=== PATIENT | male | born 1955 | race Caucasian/White ===

== ENCOUNTER 2022-02-21 13:04 | Outpatient (CLI) | payer OTHER, MEDICARE ==
--- NOTE | 2022-02-21 16:45 | XRAY Report ---
PROCEDURE: Lumbar Spine 2 View INDICATIONS: LUMBAR SPINE PAIN TECHNIQUE: 3 views of the lumbar spine were acquired. COMPARISON: None. FINDINGS: Bones: 5 [id number] vertebrae are present. There is mild, approximately 3 mm of L2-L3 and L3-L 4 retrolisthesis. There is mild, approximately 4 mm of L5-S1 retrolisthesis. No vertebral body compre ssion fractures. No suspicious bony lesions. Mild degenerative disc changes noted throughout the lum bar spine. Mild L1-L2, L2-L3 and L3-L4 facet hypertrophy. Moderate L4-L5 and L5-S1 facet hypertrophy. Soft tissues: Overlying bowel gas pattern is normal. No suspicious soft tissue calcifications. IMPRESSION: 1. Multilevel degenerative disc disease. 2. Multilevel facet arthropathy. 3. No fracture. No acute osseous lesion. If there is continued clinical concern for pathology, then M RI should be considered for further evaluation. Reviewed by: Rashida Zapata MD, PhD on 02/21/2022 4:44 PM PDT Approved by: Rashida Zapata MD, PhD on 02/21/2022 4:44 PM PDT Station ID: [id number]
== END 2022-02-21 23:59 | disposition home or self-care (01) ==
LOC: DI.N 13:04
PROVIDERS: ATTEND Physician Assistant
DX: M43.16 Spondylolisthesis, lumbar region (principal); M43.17 Spondylolisthesis, lumbosacral region; M51.36 Other intervertebral disc degeneration, lumbar region; M47.816 Spondylosis without myelopathy or radiculopathy, lumbar region; M47.817 Spondylosis without myelopathy or radiculopathy, lumbosacral region

== ENCOUNTER 2023-01-10 08:22 | Outpatient (CLI) | payer OTHER, MEDICARE ==
--- NOTE | 2023-01-10 10:21 | XRAY Report ---
PROCEDURE: Lumbar Spine 2 View INDICATIONS: STRAIN OF MUSCLE,FASCIA AND TENDON OF LOWER BACK TECHNIQUE: 2 views of the lumbar spine were acquired. COMPARISON: Lumbar spine radiographs 02/21/2022 FINDINGS: Bones: 5 [id number] vertebrae are present. 3 mm grade 1 retrolisthesis of L1 on L2. Trace retro listhesis of L2 on L3 and L3 on L4. Approximately 4 mm grade 1 retrolisthesis of L5 on S1. No verteb ral body compression fractures. No suspicious bony lesions. There is multilevel disc space narrowin g and degenerative endplate changes. Facet hypertrophy is seen throughout the lumbar spine, most prom inent at the L4-5 and L5-S1 levels. Soft tissues: Overlying bowel gas pattern is normal. No suspicious soft tissue calcifications. Mil d aortic atherosclerotic calcifications. IMPRESSION: Multilevel spondylosis and degenerative spondylolisthesis, which does not appear signifi cantly changed compared to the radiographs from 02/21/2022. Reviewed by: Mateo Lundberg MD on 01/10/2023 10:20 AM PDT Approved by: Mateo Lundberg MD on 01/10/2023 10:20 AM PDT Station ID: [id number]
== END 2023-01-10 08:23 | disposition home or self-care (01) ==
LOC: DI 08:22
PROVIDERS: ATTEND Family Medicine
DX: M51.36 Other intervertebral disc degeneration, lumbar region (principal); M51.37 Other intervertebral disc degeneration, lumbosacral region; M47.816 Spondylosis without myelopathy or radiculopathy, lumbar region; M47.817 Spondylosis without myelopathy or radiculopathy, lumbosacral region; M43.16 Spondylolisthesis, lumbar region; M43.17 Spondylolisthesis, lumbosacral region

== ENCOUNTER 2023-06-02 07:30 | Outpatient (CLI) | payer MEDICARE, OTHER ==
[2023-06-02 12:36] LABS: BASOPHILS # (AUTO) 0.1 10^3/uL (0.0-0.1); BASOPHILS % (AUTO) 0.8 %; EOSINOPHILS # (AUTO) 0.1 10^3/uL (0.0-0.7); EOSINOPHILS % (AUTO) 0.8 %; HGB - HEMOGLOBIN 15.3 g/dL (14.0-18.0); LYMPHOCYTES # (AUTO) 2.5 10^3/uL (1.5-3.5); LYMPHOCYTES % (AUTO) 33.5 %; MEAN CORPUSCULAR HEMOGLOBIN 28.3 pg (27.0-31.0); MEAN CORPUSCULAR HGB CONC 32.6 g/dL (32.0-36.0); MEAN CORPUSCULAR VOLUME 86.9 fL (80.0-94.0); MEAN PLATELET VOLUME 11.3 fL (7.4-11.4); MONOCYTES # (AUTO) 0.6 10^3/uL (0.0-1.0); MONOCYTES % (AUTO) 7.7 %; NEUTROPHILS # (AUTO) 4.2 10^3/uL (1.5-6.6); NEUTROPHILS % (AUTO) 56.9 %; PLT - PLATELET COUNT 230 10^3/uL (130-450); RED BLOOD COUNT 5.41 10^6/uL (4.70-6.10); RED CELL DISTRIBUTION WIDTH 14.1 % (12.0-15.0); WHITE BLOOD COUNT 7.4 x10^3/uL (4.8-10.8)
[2023-06-02 12:40] LABS: ESTIMATED AVERAGE GLUCOSE 143 mg/dL (70-100); HEMOGLOBIN A1c% 6.6 % (4.27-6.07)
[2023-06-02 12:55] LABS: THYROID STIMULATING HORMONE 1.92 uIU/mL (0.34-5.60)
[2023-06-02 13:02] LABS: ALBUMIN 4.3 g/dL (3.2-5.5); ALBUMIN/GLOBULIN RATIO 1.3 (1.0-2.2); BILIRUBIN,TOTAL 0.4 mg/dL (0.2-1.0); CALCIUM 9.7 mg/dL (8.5-10.3); CREATININE 0.9 mg/dL (0.6-1.3); POTASSIUM 3.9 mmol/L (3.5-4.5); TOTAL PROTEIN 7.7 g/dL (6.4-8.9)
== END 2023-06-02 07:45 | disposition home or self-care (01) ==
LOC: LAB.N 07:30
PROVIDERS: ATTEND Family Medicine
DX: G62.9 Polyneuropathy, unspecified (principal); I73.9 Peripheral vascular disease, unspecified; M79.661 Pain in right lower leg
CPT/HCPCS: 36415; 80053; 82607; 83036; 84443; 85025; 85379

== ENCOUNTER 2023-06-13 21:48 | Outpatient (CLI) | payer MEDICARE, OTHER ==
--- NOTE | 2023-06-14 23:12 | Ultrasound Report ---
PROCEDURE: Duplex Lwr Ext Arterial Bilat INDICATIONS: INTERMITTENT CLAUDICATION TECHNIQUE: Color and pulse Doppler interrogation was performed of both lower extremity arterial systems, with im age documentation. COMPARISON: None FINDINGS: Right lower extremity: Common femoral artery: 228 cm/sec, with biphasic flow. Deep femoral artery: 139 cm/sec, with biphasic flow. Proximal superficial femoral artery: 134 cm/sec, with biphasic flow. Mid superficial femoral artery: 109 cm/sec, with biphasic flow. Distal superficial femoral artery: 99 cm/sec, with biphasic flow. Popliteal artery: 38 cm/sec, with monophasic flow. Posterior tibial artery: 50 cm/sec, with monophasic flow. Anterior tibial artery/dorsalis pedis: 36 cm/sec, with monophasic flow. Baron-scale imaging description: Prominent atherosclerotic calcification can be seen. Left lower extremity: Common femoral artery: 201 cm/sec, with biphasic flow. Deep femoral artery: 159 cm/sec, with biphasic flow. Proximal superficial femoral artery: 116 cm/sec, with biphasic flow. Mid superficial femoral artery: 142 cm/sec, with biphasic flow. Distal superficial femoral artery: 173 cm/sec, with biphasic flow. Popliteal artery: 65 cm/sec, with biphasic flow. Posterior tibial artery: 32 cm/sec, with monophasic flow. Anterior tibial artery/dorsalis pedis: 60 cm/sec, with biphasic flow. Baron-scale imaging description: Severe atherosclerotic calcification can be seen. IMPRESSION: With femoral arteries, which is consistent with inflow stenoses. There is a borderline stenosis seen within the distal left superficial femoral artery. No additional focal stenosis can be seen throughout either lower extremity by velocity criteria. Atherosclerotic plaque is seen throughout. Monophasic flow seen distally. Please consider follow-up runoff CT angiogram or runoff MR angiogram for further evaluation. Reviewed by: Puneet Arguello MD on 06/14/2023 10:10 PM [facility] Approved by: Puneet Arguello MD on 06/14/2023 10:10 PM [facility] Station ID: [id number]
== END 2023-06-13 21:49 | disposition home or self-care (01) ==
LOC: DI 21:48
PROVIDERS: ATTEND Family Medicine
DX: I70.203 Unspecified atherosclerosis of native arteries of extremities, bilateral legs (principal)
CPT/HCPCS: 93925

== ENCOUNTER 2023-07-01 09:36 | Outpatient (CLI) | payer MEDICARE, OTHER ==
[2023-07-01] MEDS ORDERED: IOVERSOL 320 100 ML VIAL IVP ONE (10:10)
--- NOTE | 2023-07-01 16:54 | CT Report ---
PROCEDURE: ANGIO LOWER EXT W/WO - B/L INDICATIONS: RIGHT CALF PAIN, PVD, CLAUDICATION TECHNIQUE: After administration of contrast 3 mm axial sections acquired of the PROCEDURE: ANGIO LOWER EXT W/WO - B/L INDICATIONS: RIGHT CALF PAIN, PVD, CLAUDICATION CONTRAST: 125ml Optiray 320 TECHNIQUE: After the administration of intravenous contrast, a CT scan of the abdomen, pelvis and lower extremit ies (to the feet) was performed. Images were recorded and evaluated at appropriate window settings. R eformats: coronal and sagittal. For radiation dose reduction, the following was used: automated expos ure control, adjustment of mA and/or kV according to patient size. COMPARISON: None. FINDINGS: Image quality: Excellent. Lung bases are clear. Calcification of the coronary vasculature. Heart size is normal. Arterial phase images of the liver, gallbladder, biliary tree, pancreas, spleen, adrenals, kidneys, a nd urinary bladder are within normal limits. Visualized bowel loops are within normal limits. No destiny opathy within the abdomen, nor pelvis. There is a fat-containing umbilical hernia measuring 40 mm yancy meter. No free fluid. There is fusiform aneurysmal dilatation of the infrarenal abdominal aorta with mild mural thrombus, w ith maximum short axis diameter of roughly 38 mm. No significant aortic stenosis is present. The celiac artery demonstrate a moderate origin stenosis. Superior mesenteric artery is patent. Infer ior mesenteric artery demonstrates a high-grade origin stenosis. There are 2 left renal arteries whic h demonstrate moderate origin stenoses. Mild origin stenosis of the single right renal artery is pres ent. Visualized osseous structures are grossly unremarkable. 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 Common iliac artery demonstrates moderate diffuse plaque in mild diffuse stenosis. Internal iliac artery demonstrates a h igh-grade origin stenosis. External iliac artery demonstrates moderate stenosis within its midportion and is otherwise patent. Common femoral artery demonstrates moderate diffuse plaque in mild diffuse stenosis. Profunda femoral artery demonstrates a moderate origin stenosis. Superficial femoral artery demonstrates multifocal high-grade stenoses. Above knee popliteal artery is occluded proximally, and reconstitutes within its mid and distal aspects. Below knee popliteal artery demonstrates moderate d iffuse plaque causing mild diffuse stenosis. Anterior tibial artery demonstrates a high-grade calcifi c stenosis proximally and is otherwise patent. Tibial peroneal trunk demonstrates high-grade stenosis distally. Posterior tibial artery demonstrates mild multifocal stenoses. Peroneal artery is patent t o its normal terminus. Left: Moderate diffuse plaque and mild diffuse stenosis of the common iliac artery. Internal iliac artery i s occluded. External iliac artery dilatation moderate diffuse plaque in mild diffuse stenosis. Common femoral artery demonstrates moderate diffuse plaque in mild diffuse stenosis. High-grade calcific st enosis of the profunda femoral artery origin. Superficial femoral artery demonstrates moderate stenos is proximally and high-grade stenosis distally. Above and below knee popliteal artery is mildly diffu sely stenotic. Anterior tibial artery demonstrates multifocal high-grade stenoses and occludes distal ly. Tibioperoneal trunk is mildly diffusely stenotic. Peroneal artery is patent with normal terminus. Posterior tibial artery is patent to its normal terminus. IMPRESSION: 1. Abdominal aortic aneurysm. 2. Mesenteric and renal artery stenoses. 3. Bilateral inflow stenoses as described above. 4. Bilateral outflow stenoses and right-sided outflow occlusion. 5. Two-vessel bilateral lower extremity runoff. 6. Fat-containing umbilical hernia. 7. Coronary artery disease. Reviewed by: Xiomy Campbell MD on 07/01/2023 4:52 PM PDT Approved by: Xiomy Campbell MD on 07/01/2023 4:52 PM PDT Station ID: [id number]
== END 2023-07-01 09:37 | disposition home or self-care (01) ==
LOC: DI 09:36
PROVIDERS: ATTEND Family Medicine
DX: I71.40 Abdominal aortic aneurysm, without rupture, unspecified (principal); I70.1 Atherosclerosis of renal artery; K55.1 Chronic vascular disorders of intestine; K42.9 Umbilical hernia without obstruction or gangrene; I25.10 Atherosclerotic heart disease of native coronary artery without angina pectoris; I70.203 Unspecified atherosclerosis of native arteries of extremities, bilateral legs
CPT/HCPCS: 73706; Q9967

== ENCOUNTER 2024-02-19 12:56 | Outpatient (CLI) | payer MEDICARE, OTHER ==
[2024-02-19 13:08] LABS: BASOPHILS # (AUTO) 0.1 10^3/uL (0.0-0.1); BASOPHILS % (AUTO) 0.4 %; EOSINOPHILS % (AUTO) 0.3 %; HCT - HEMATOCRIT 44.9 % (42.0-52.0); HGB - HEMOGLOBIN 13.9 g/dL (14.0-18.0); LYMPHOCYTES # (AUTO) 2.2 10^3/uL (1.5-3.5); LYMPHOCYTES % (AUTO) 15.5 %; MEAN CORPUSCULAR HEMOGLOBIN 26.3 pg (27.0-31.0); MEAN PLATELET VOLUME 10.2 fL (7.4-11.4); MONOCYTES % (AUTO) 6.9 %; NEUTROPHILS # (AUTO) 10.7 10^3/uL (1.5-6.6); NEUTROPHILS % (AUTO) 76.5 %; PLT - PLATELET COUNT 221 10^3/uL (130-450); RED BLOOD COUNT 5.28 10^6/uL (4.70-6.10); RED CELL DISTRIBUTION WIDTH 15.6 % (12.0-15.0)
[2024-02-19 13:21] LABS: ALBUMIN 4.2 g/dL (3.2-5.5); ALBUMIN/GLOBULIN RATIO 1.2 (1.0-2.2); BILIRUBIN,TOTAL 0.9 mg/dL (0.2-1.0); CALCIUM 9.8 mg/dL (8.5-10.3); CREATININE 0.9 mg/dL (0.6-1.3); POTASSIUM 4.1 mmol/L (3.5-4.5); TOTAL PROTEIN 7.8 g/dL (6.4-8.9)
[2024-02-19 13:37] LABS: THYROID STIMULATING HORMONE 1.81 uIU/mL (0.34-5.60)
--- NOTE | 2024-02-19 16:31 | XRAY Report ---
PROCEDURE: Chest 2V INDICATIONS: SHORTNESS OF BREATH TECHNIQUE: 2 views of the chest were acquired. COMPARISON: None. FINDINGS: Surgical changes and devices: None. Lungs and pleura: No pleural effusions or pneumothorax. Lungs are clear. Mediastinum: Mediastinal contours appear normal. Heart size is normal. Bones and chest wall: No suspicious bony lesions. Overlying soft tissues appear unremarkable. IMPRESSION: No acute cardiopulmonary process. Reviewed by: Denton Mcgowan MD on 02/19/2024 4:30 PM PDT Approved by: Denton Mcgowan MD on 02/19/2024 4:30 PM PDT Station ID: [id number]
== END 2024-02-19 12:57 | disposition home or self-care (01) ==
LOC: LAB 12:56 → DI 12:57
PROVIDERS: ATTEND Nurse Practitioner
DX: R06.02 Shortness of breath (principal); R53.83 Other fatigue
CPT/HCPCS: 36415; 80053; 83880; 84443; 85025; 85379

== ENCOUNTER 2024-03-17 11:14 | Outpatient (CLI) | payer MEDICARE, OTHER ==
[2024-03-17 18:11] LABS: ALBUMIN 4.3 g/dL (3.2-5.5); ALBUMIN/GLOBULIN RATIO 1.4 (1.0-2.2); ALKALINE PHOSPHATASE 69 IU/L (42-121); ALT ALANINE AMINOTRANSFERASE 22 IU/L (10-60); AST ASPARTATE AMINOTRANSFERASE 16 IU/L (10-42); BILIRUBIN,TOTAL 0.4 mg/dL (0.2-1.0); BUN - BLOOD UREA NITROGEN 15 mg/dL (6-20); CALCIUM 9.5 mg/dL (8.5-10.3); CARBON DIOXIDE - CO2 25 mmol/L (21-32); CHLORIDE 106 mmol/L (101-111); CHOL/HDL RATIO 6.4 (<5.0); CHOLESTEROL 231 mg/dL; CREATININE 0.8 mg/dL (0.6-1.3); GFR - MDRD 96 (>89); GLUCOSE 122 mg/dL (74-104); HDL CHOLESTEROL 36 mg/dL; POTASSIUM 4.3 mmol/L (3.5-4.5); SODIUM 138 mmol/L (135-145); TOTAL PROTEIN 7.3 g/dL (6.4-8.9); TRIGLYCERIDES 505 mg/dL (48-352)
[2024-03-17 18:21] LABS: THYROID STIMULATING HORMONE 1.95 uIU/mL (0.34-5.60)
[2024-03-17 18:33] LABS: LDL CHOLESTEROL,DIRECT 132 mg/dL (75-193); LDLD/HDL RATIO 3.7 (<3.6)
[2024-03-17 21:14] LABS: ESTIMATED AVERAGE GLUCOSE 131 mg/dL (70-100); HEMOGLOBIN A1c% 6.2 % (4.27-6.07)
== END 2024-03-17 11:15 | disposition home or self-care (01) ==
LOC: LAB.N 11:14
PROVIDERS: ATTEND Family Medicine
DX: I11.0 Hypertensive heart disease with heart failure (principal); I50.21 Acute systolic (congestive) heart failure; E78.5 Hyperlipidemia, unspecified
CPT/HCPCS: 36415; 80053; 80061; 83036; 83721; 83880; 84443

== ENCOUNTER 2024-06-28 11:29 | Outpatient (CLI) | payer MEDICARE, OTHER ==
--- NOTE | 2024-06-28 13:11 | CT Report ---
PROCEDURE: Chest WO INDICATIONS: SP CABG TECHNIQUE: A CT scan of the chest was performed. Intravenous contrast media was not administered. Images were re corded and evaluated at appropriate window settings. Reformats: axial MIP of the chest, coronal and s agittal. For radiation dose reduction, the following was used: automated exposure control, adjustment of mA and/or kV according to patient size. COMPARISON: Chest 2 views dated 02/19/2024. FINDINGS: Image quality: Diagnostic. Chest wall and lower neck: No thyroid nodule which requires sonographic follow up. No axillary or sup raclavicular adenopathy by size. Lungs and pleura: No consolidation. No pleural effusions. No pneumothorax. No suspicious pulmonary n odules which require follow up. Mediastinum: Heart size is normal. No pericardial effusion. Recent CABG. Severe coronary artery calci fications. No large vessel abnormality. No mediastinal adenopathy by size criteria. Bones: No aggressive osseous abnormality. Recent midline sternotomy. Cerclage wires are intact. There is an offset between each side of the sternum, with the left hemisternum slightly subluxed superiorl y versus the right.. Upper Abdomen: Unremarkable. IMPRESSION: Recent midline sternotomy. Slight offset of the right and left halves of the sternum. No acute pulmonary process. Comment: Recommend consultation with cardiothoracic surgical team that performed the midline sternoto my to evaluate for significance of the slight offset. Reviewed by: Jose Gandhi MD on 06/28/2024 1:10 PM PDT Approved by: Jose Gandhi MD on 06/28/2024 1:10 PM PDT Station ID: [id number]
== END 2024-06-28 11:30 | disposition home or self-care (01) ==
LOC: DI 11:29
PROVIDERS: ATTEND Physician Assistant
DX: Z95.1 Presence of aortocoronary bypass graft (principal)